=== PATIENT | male | born 1950 | race Hispanic/Latino ===

== ENCOUNTER → 2020-12-04 | Outpatient (CLI) | payer MEDICARE | END | disposition home or self-care (01) | LOC: RAH 14:29 | PROVIDERS: ATTEND Orthopaedic Surgery | DX: M25.462 Effusion, left knee (principal); M79.89 Other specified soft tissue disorders; M23.92 Unspecified internal derangement of left knee | CPT/HCPCS: 73721 ==

== ENCOUNTER → 2022-09-06 | Outpatient (CLI) | payer MEDICARE ==
[~2022-09-06] MED LIST: REGADENOSON 0.4 MG/5 ML PF SYG IVP SCH
== END | disposition home or self-care (01) ==
LOC: SHCH 09:49
PROVIDERS: ATTEND Internal Medicine
DX: R07.9 Chest pain, unspecified (principal)
CPT/HCPCS: 78452; 96374; 93017; J2785; A9500 ×2

== ENCOUNTER → 2022-09-13 | Outpatient (CLI) | payer MEDICARE | END | disposition home or self-care (01) | LOC: SHCH 14:03 | PROVIDERS: ATTEND Internal Medicine | DX: R07.9 Chest pain, unspecified (principal); I10 Essential (primary) hypertension; E78.5 Hyperlipidemia, unspecified; E11.9 Type 2 diabetes mellitus without complications | CPT/HCPCS: 93306 ==

== ENCOUNTER 2023-11-22 12:32 | Emergency (ER) | payer MEDICARE ==
[~2023-11-22] VITALS: Ht 165.1 cm; Wt 83.9 kg
[2023-11-22] MEDS: DIPH,PERTUSS(ACELL),TET VAC/PF 0.5 ML VIAL IM ONE (13:44)
[2023-11-22 15:30] VITALS: BP 133/71; PULSE 70; RESP 16; O2SAT 98
[2023-11-22] MEDS ORDERED: CEPH500B PO (15:53)
== END 2023-11-22 15:58 | disposition home or self-care (01) ==
LOC: EDH 12:32
DX: S01.01XA Laceration without foreign body of scalp, initial encounter (principal); E11.9 Type 2 diabetes mellitus without complications; W18.39XA Other fall on same level, initial encounter; Y93.89 Activity, other specified; Y92.89 Other specified places as the place of occurrence of the external cause; Y99.8 Other external cause status
CPT/HCPCS: 70450; 90471; 90715

== ENCOUNTER 2024-07-26 22:50 | Emergency (ER) | payer MEDICARE ==
[~2024-07-26] VITALS: Ht 165.1 cm; Wt 81.2 kg
[~2024-07-26 22:50] MED LIST changes: +CEPH500B PO; -REGADENOSON 0.4 MG/5 ML PF SYG IVP SCH
[2024-07-26 23:52] VITALS: BP 128/88; PULSE 68; RESP 20; TEMP 98.7; O2SAT 100
[2024-07-27] MEDS ORDERED: AMOX-427 PO (00:07)
--- NOTE | 2024-07-27 00:08 | ERN ---
General Chief Complaint: Animal Bite Stated Complaint: DOG BITE Time Seen by MD: 23:21 History of Present Illness Initial Comments 73-year-old male with past medical history of diabetes presents one day after being bitten by dog. Patient reports that it is his own personal dog. Patient states that he washed wounds. Patient reports because he is concerned that he might need antibiotics. Patient denies fevers, nausea, vomiting diaphoresis, syncope, presyncope productive cough. Patient also reports that he received tetanus vaccination. Allergies: Coded Allergies: No Allergy Information Available (Verified Allergy, Unknown, 09/03/22) No Known Drug Allergies (Unverified Allergy, Unknown, 07/26/24) Home Meds Active Scripts Cephalexin Monohydrate (Keflex) 500 Mg Cap, 500 MG PO TID for 7 Days, #21 CAP 0 Refills Prov:SHERLY CHERRY 11/22/23 Past Medical History Past Medical History: Diabetes-Type II Past Surgical History: None ROS Dictation See HPI Physical Exam Physical Exam Dictation Tenderness to palpation to right leg, puncture wounds diffusely to right leg, no erythema, no purulence, no appropriate inappropriate warmth right leg MDM Upon inspection of wound, there is no evidence of infection. Considered x-ray to assess for foreign body or fracture, patient is ambulatory and wounds are superficial. No indication for x-ray at this time. Discussed ED workup with patient. We will prescribe antibiotics. Return precautions given. Invited and answered all questions prior to discharge. ED Course Vital Signs Date Time Temp Pulse Resp B/P (MAP) Pulse Ox O2 Delivery O2 Flow Rate FiO2 07/26/24 23:52 98.8 68 20 128/88 100 Room Air* 0 21 07/26/24 22:52 97.3 63 18 139/66 97 Room Air 0 DX & DISP Disposition: Discharge Departure Impression: Primary Impression: Dog bite Condition: Stable Scripts Amoxicillin/Potassium Clav (Augmentin Xr 1,000-62.5 Tab) 1,000 Mg-62.5 Mg Tab.er.12h 1 TAB PO BID for 10 Days, #20 TAB 0 Refills with food Prov: CHRISTINA WILLS DO 07/27/24 Additional Instructions: Please follow up with primary care physician or the next available appointment. Please return to emergency department immediately if you noticed spreading r edness, inappropriate warmth, pus, worsening pain to right lower extremity. You were require antibiotics. Please control any pain with Tylenol and ibuprofen. Referrals: MICKEY WALLER MD (PCP) Time of Disposition: 00:08 CHRISTINA WILLS DO Jul 27, 2024 00:08
== END 2024-07-27 00:16 | disposition home or self-care (01) ==
LOC: EDH 22:50
DX: S81.851A Open bite, right lower leg, initial encounter (principal); E11.9 Type 2 diabetes mellitus without complications; Z79.899 Other long term (current) drug therapy; W54.0XXA Bitten by dog, initial encounter; Y93.89 Activity, other specified; Y92.89 Other specified places as the place of occurrence of the external cause; Y99.8 Other external cause status
CPT/HCPCS: 99283